=== PATIENT | female | born 1995 | race Two or more races ===

== ENCOUNTER → 2019-12-22 | Outpatient (CLI) | payer OTHER | END | disposition home or self-care (01) | LOC: PRENATAL 09:51 | PROVIDERS: ATTEND Specialist | DX: O26.851 Spotting complicating pregnancy, first trimester (principal); O36.80X1 Pregnancy with inconclusive fetal viability, fetus 1 ==

== ENCOUNTER 2019-12-23 06:47 | Day surgery (SDC) | payer OTHER ==
[~2019-12-23] VITALS: Ht 152.4 cm; Wt 49.9 kg
== END 2019-12-23 16:30 | disposition home or self-care (01) ==
LOC: ER 06:47 → CIR.AMB 08:41
PROVIDERS: ATTEND Specialist
DX: O02.1 Missed abortion (principal)